=== PATIENT | male | born 1965 | race Hispanic/Latino ===

== ENCOUNTER 2018-02-27 17:34 | Emergency (ER) | payer MEDICARE, MEDICAID ==
[2018-02-27 17:34] VITALS: BMI 19.6
--- NOTE | 2018-02-27 18:56 | C.PDOC ---
History Of Present Illness 52 year old male presents to the ED for evaluation of alcohol intoxication. Patient presented himself to the police department claiming that he has been experiencing anxiety about various issues. Patient has an extensive history of anxiety and depression. Patient admits to drinking two fifth of alcohol, which is usual for his baseline. Patient denies suicidal/homicidal ideation. Time Seen by Provider: 02/27/18 18:00 Chief Complaint (Nursing): Substance Abuse History Per: Patient History/Exam Limitations: intoxication Onset/Duration Of Symptoms: Hrs Current Symptoms Are (Timing): Still Present Suicide/Self Injury Attempted (Context): None Modifying Factor(s): Alcohol Associated Symptoms: denies: Suicidal Thoughts, Suicidal Plan Involuntary Hold By: None Recent travel outside of the [place]: No Additional History Per: Patient Past Medical History Reviewed: Historical Data, Nursing Documentation, Vital Signs Vital Signs: Last Vital Signs Temp 97.9 F 02/27/18 17:43 Pulse 79 02/27/18 17:43 Resp 17 02/27/18 17:43 BP 114/77 02/27/18 17:43 Pulse Ox 96 02/27/18 17:43 - Medical History PMH: Anxiety (HX PANIC ATTACKS), Asthma, COPD, Depression, Fractures (LEXI LEGS ORIF 2004), Peripheral Edema Surgical History: [facility] - [facility] CORONAR ARTERIOGR-2 CATH (07/26/13) LEFT HEART CARDIAC CATH (07/26/13) LT HEART ANGIOCARDIOGRAM (07/26/13) Family History: States: Unknown Family Hx - Social History Hx Tobacco Use: Yes Hx Alcohol Use: Yes Hx Substance Use: No - Immunization History Hx Tetanus Toxoid Vaccination: No Hx Influenza Vaccination: No Hx Pneumococcal Vaccination: No Review Of Systems Psych: Positive for: Other (EtOH intoxication ). Negative for: Suicidal ideation Physical Exam - Physical Exam Appears: Non-toxic, No Acute Distress, Other (stuperous, argumentative, visibly intoxicated ) Skin: Normal Color, Warm, Dry, No Other (obvious injuries ) Head: Atraumatic, Normacephalic Eye(s): bilateral: Normal Inspection Oral Mucosa: Moist, Other (alcohol on breath ) Neck: Supple Chest: Symmetrical, No Deformity Respiratory: No Accessory Muscle Use Extremity: Normal ROM Neurological/Psych: Other (ataxia ) ED Course And Treatment O2 Sat by Pulse Oximetry: 96 (on RA) Pulse Ox Interpretation: Normal Reevaluation Time: 21:55 (psychiatrically and emotionally stable, stable gait) Medical Decision Making Medical Decision Making: persistent alcohol abuse Disposition Doctor Will See Patient In The: Office Counseled Patient/Family Regarding: Studies Performed, Diagnosis - Disposition Disposition: HOME/ ROUTINE Disposition Time: 21:56 Condition: GOOD Forms: [facility] (Macedonian) - Clinical Impression Clinical Impression: Alcohol intoxication - Scribe Statement The provider has reviewed the documentation as recorded by the Scribe (Sandra Noble) Provider Attestation: All medical record entries made by the Scribe were at my direction and personally dictated by me. I have reviewed the chart and agree that the record accurately reflects my personal performance of the history, physical exam, medical decision making, and the department course for this patient. I have also personally directed, reviewed, and agree with the discharge instructions and disposition.
[2018-02-27 21:56] VITALS: O2SAT 96
[2018-02-27 22:04] VITALS: BP 103/69; PULSE 73; RESP 20; TEMP 97.8
== END 2018-02-27 22:15 | disposition home or self-care (01) ==
LOC: C.ER 17:34
DX: F10.129 Alcohol abuse with intoxication, unspecified (principal); Z72.0 Tobacco use

== ENCOUNTER 2018-06-18 09:03 | Emergency (ER) | payer MEDICARE, MEDICAID ==
[2018-06-18 09:10] VITALS: BMI 23.7
[2018-06-18 09:14] VITALS: TEMP 98.2; O2SAT 96
[2018-06-18] MEDS ORDERED: Iodixanol 320 MG/ML 100 ML BOTTLE IV ONE (09:43)
[2018-06-18 10:10] LABS: ALB/GLOB RATIO 1.6 (1.0-2.1); ALBUMIN 4.7 g/dL (3.5-5.0); ALT/SGPT 58 U/L (21-72); AST/SGOT 57 U/L (17-59); BLOOD UREA NITROGEN 11 mg/dL (9-20); CALCIUM 9.7 mg/dl (8.6-10.4); GFR NON-AFRICAN AMERICAN > 60; LIPASE 110 U/L (23-300)
[2018-06-18 10:31] LABS: BASO # 0.1 K/uL (0.0-0.2); BASO % 1.2 % (0.0-2.0); EOS # 0.6 K/uL (0.0-0.7); EOS % 5.3 % (0.0-4.0); HEMOGLOBIN 16.7 g/dL (12.0-18.0); LYMPH # 2.5 K/uL (1.0-4.3); LYMPH % 23.2 % (20.0-40.0); MEAN CELL VOLUME 95.5 fL (80.0-94.0); MEAN CORPUSCULAR HEMOGLOBIN 33.3 pg (27.0-31.0); MEAN CORPUSCULAR HGB CONC 34.8 g/dL (33.0-37.0); MEAN PLATELET VOLUME 9.5 fL (7.2-11.7); MONO # 1.1 K/uL (0.0-0.8); MONO % 10.1 % (0.0-10.0); NEUT # 6.4 K/uL (1.8-7.0); NEUT % 60.2 % (50.0-75.0); NRBC % 0.1 % (0.0-2.0); RBC 5.04 Mil/uL (4.40-5.90); RED CELL DISTRIBUTION WIDTH 13.9 % (11.5-14.5); WHITE BLOOD COUNT 10.7 K/uL (4.8-10.8)
--- NOTE | 2018-06-18 12:40 | CT ---
Date of service: 06/18/2018 CT abdomen and pelvis with IV contrast Indication: abd pain - ? hernia r/o bowel obstruction Technique: Contiguous axial images of the abdomen and pelvis. Coronal and Sagittal reformats generated and reviewed. Contrast: 100 mL Visipaque [address] exam was performed using 1 or more of the following dose reduction techniques: Automated exposure control, adjustment of the MAA and/or kV according to patient size, and/or use of iterative reconstruction technique. Radiation dose: Total exam DLP = 1008.38 MGy-cm. Comparison: Abdominal ultrasound performed 11/29/16 Findings: No visible consolidation, pleural effusion, or pneumothorax. Coronary artery calcifications. Small hiatal hernia. Hypoattenuation of the liver compatible with hepatic steatosis. 1.4 cm pancreatic hypodensity with peripheral calcification. Pancreatic duct does not appear dilated. Remainder of the pancreas appears unremarkable. The kidneys, adrenal glands, and gallbladder appear unremarkable. Gastric wall thickening likely exaggerated by wall thickening; correlate clinically including endoscopy if indicated. Tiny fat containing umbilical hernia. Mucosal wall thickening of the right colon; correlate for history of colitis. The bowel loops appear within normal limits of caliber without evidence of intestinal obstruction. The appendix is not identified. No secondary signs of acute appendicitis. There is no definite free air. Thick-walled urinary bladder. L2 through L4 posterior lumbar fusion hardware. Resultant streak artifact. Degenerative changes. Mild loss of T12 vertebral body height, presumably compression fracture age indeterminate. Impression: 1.4 cm pancreatic hypodensity with peripheral calcification; indeterminate. Recommend follow-up pancreatic protocol CT or MRI for further characterization. Malignant neoplasm cannot be excluded. The spleen is absent; by history the patient has had a splenectomy. Hypoattenuation of the liver compatible with hepatic steatosis. Gastric wall thickening presumably exaggerated by under distension; follow-up with endoscopy may be considered. Mucosal wall thickening of the right colon; correlate for history of colitis. Thick-walled urinary bladder; recommend correlation with urinalysis. L2 through L4 posterior lumbar fusion hardware. Resultant streak artifact. Degenerative changes. Mild loss of T12 vertebral body height, presumably compression fracture age indeterminate. Case discussed with Dr. Gray on 06/18/18 at 12:33 p.m.
[2018-06-18 14:17] VITALS: BP 138/86; PULSE 82; RESP 19
--- NOTE | 2018-06-18 14:45 | C.PDOC ---
History Of Present Illness 52 y/o male presents to the ER complaining of intermittent abdominal pain which has been present for the past 2-3 weeks. Patient states that he has normal diet and he has no changes in appetite. Patient reports that he has to strain sometimes to have a bowel movement. He notes that he was referred to the ER by [facility] to rule out bowel obstruction.Denies having fever,chills,nausea, vomiting, diarrhea, constipation, and urinary symptoms. Time Seen by Provider: 06/18/18 09:18 Chief Complaint (Nursing): Abdominal Pain History Per: Patient History/Exam Limitations: no limitations Onset/Duration Of Symptoms: Days Current Symptoms Are (Timing): Still Present Severity: Moderate Past Medical History Reviewed: Historical Data, Nursing Documentation, Vital Signs Vital Signs: Last Vital Signs Temp 98.2 F 06/18/18 09:10 Pulse 82 06/18/18 14:16 Resp 19 06/18/18 14:16 BP 138/86 06/18/18 14:16 Pulse Ox 96 06/18/18 14:16 - Medical History PMH: Anxiety (HX PANIC ATTACKS), Asthma, COPD, Depression, Fractures (LEXI LEGS ORIF 2004), Peripheral Edema Surgical History: Endoscopy - [facility] Procedures CORONAR ARTERIOGR-2 CATH (07/26/13) LEFT HEART CARDIAC CATH (07/26/13) LT HEART ANGIOCARDIOGRAM (07/26/13) Family History: States: No Known Family Hx - Social History Hx Tobacco Use: Yes Hx Alcohol Use: Yes Hx Substance Use: No - Immunization History Hx Tetanus Toxoid Vaccination: No Hx Influenza Vaccination: No Hx Pneumococcal Vaccination: No Review Of Systems Except As Marked, All Systems Reviewed And Found Negative. Constitutional: Negative for: Fever, Chills Gastrointestinal: Positive for: Abdominal Pain. Negative for: Nausea, Vomiting, Diarrhea Genitourinary: Negative for: Dysuria, Frequency, Incontinence, Hematuria Physical Exam - Physical Exam Appears: Non-toxic, No Acute Distress Skin: Normal Color, Warm, Dry Head: Atraumatic, Normacephalic Eye(s): bilateral: Normal Inspection Nose: Normal Oral Mucosa: Moist Neck: Supple Chest: Symmetrical Cardiovascular: Rhythm Regular Respiratory: Normal Breath Sounds, No Rales, No Rhonchi, No Wheezing Gastrointestinal/Abdominal: Bowel Sounds (normal bowel sounds), Soft, No Tenderness, Other (well-healed midline surgical scar, midline abdominal hernia) Neurological/Psych: Oriented x3, Normal Speech ED Course And Treatment - Laboratory Results Result Diagrams: 06/18/18 09:39 06/18/18 09:39 Lab Results: Total Bilirubin 0.8 mg/dL (0.2-1.3) 06/18/18 09:39 AST 57 U/L (17-59) 06/18/18 09:39 ALT 58 U/L (21-72) 06/18/18 09:39 Alkaline Phosphatase 99 U/L (38-126) 06/18/18 09:39 Total Protein 7.6 g/dL (6.3-8.3) 06/18/18 09:39 Albumin 4.7 g/dL (3.5-5.0) 06/18/18 09:39 Globulin 3.0 gm/dL (2.2-3.9) 06/18/18 09:39 Albumin/Globulin Ratio 1.6 (1.0-2.1) 06/18/18 09:39 Lipase 110 U/L (23-300) 06/18/18 09:39 O2 Sat by Pulse Oximetry: 96 (RA) Pulse Ox Interpretation: Normal - CT Scan/US CT-Abd & Pelv. Other Rad Studies (CT/US): Read By Radiologist, Radiology Report Reviewed CT/US Interpretation: Date of service: 06/18/2018. CT abdomen and pelvis with IV contrast. Indication: abd pain - ? hernia r/o bowel obstruction. Technique: Contiguous axial images of the abdomen and pelvis. Coronal and Sagittal re formats generated and reviewed. Contrast: 100 mL Visipaque [address] exam was performed using 1 or more of the following dose reduction techniques: Automated exposure control, adjustment of the MAA and/or kV according to patient size, and/or use of iterative reconstruction technique. Radiation dose: Total exam DLP = 1008.38 MGy-cm. Comparison: Abdominal ultrasound performed 11/29/16. Findings: No visible consolidation, pleural effusion, or pneumothorax. Coronary artery calcifications. Small hiatal hernia. Hypoattenuation of the liver compatible with hepatic steatosis. 1.4 cm pancreatic hypodensity with peripheral calcification. Pancreatic duct does not appear dilated. Remainder of the pancreas appears unremarkable. The kidneys, adrenal glands, and gallbladder appear unremarkable. Gastric wall thickening likely exaggerated by wall thickening; correlate clinically including endoscopy if indicated. Tiny fat containing umbilical hernia. Mucosal wall thickening of the right colon; correlate for history of colitis. The bowel loops appear within normal limits of caliber without evidence of intestinal obstruction. The appendix is not identified. No secondary signs of acute appendicitis. There is no definite free air. Thick-walled urinary bladder. L2 through L4 posterior lumbar fusion hardware. Resultant streak artifact. Degenerative changes. Mild loss of T12 vertebral body height, presumably compression fracture age indeterminate. Impression: 1.4 cm pancreatic hypodensity with peripheral calcification; indeterminate. Recommend follow-up pancreatic protocol CT or MRI for further characterization. Malignant neoplasm cannot be excluded. The spleen is absent; by history the patient has had a splenectomy. Hypoattenuation of the liver compatible with hepatic steatosis. Gastric wall thickening presumably exaggerated by under distension; follow-up with endoscopy may be considered. Mucosal wall thickening of the right colon; correlate for history of colitis. Thick-walled urinary bladder; recommend correlation with urinalysis. L2 through L4 posterior lumbar fusion hardware. Resultant streak artifact. Degenerative changes. Mild loss of T12 vertebral body height, presumably compression fracture age indeterminate. Case discussed with Dr. Gray on 06/18/18 at 12:33 p.m. Medical Decision Making Medical Decision Making: Plan: --Labs --CT- Abd & Pelv. Disposition - Disposition Referrals: Logan Newman [Staff Provider] - Disposition: HOME/ ROUTINE Disposition Time: 12:40 Condition: GOOD Additional Instructions: SHANTA MENDOZA JR, thank you for letting us take care of you today. The emergency medical care you received today was directed at your acute symptoms. If you were prescribed any medication, please fill it and take as directed. It may take several days for your symptoms to resolve. Return to the Emergency Department if your symptoms worsen, do not improve, or if you have any other problems. Please contact your doctor or call one of the physicians/clinics you have been referred to that are listed on the Patient Visit Information form that is included in your discharge packet. Bring any paperwork you were given at dis charge with you along with any medications you are taking to your follow up visit. Our treatment cannot replace ongoing medical care by a primary care provider outside of the emergency department. Thank you for allowing the [facility] [employer] team to be part of your care today. Follow up with your GI doctor this week for re-evaluation and further management. Instructions: Acute Abdomen (Belly Pain), Adult (DC) Forms: [facility] (Tristanian) - Clinical Impression Clinical Impression: Abdominal hernia - Scribe Statement The provider has reviewed the documentation as recorded by the Estuardoibe Kim Snow Provider Attestation: All medical record entries made by the Estuardoibe were at my direction and personally dictated by me. I have reviewed the chart and agree that the record accurately reflects my personal performance of the history, physical exam, medical decision making, and the department course for this patient. I have also personally directed, reviewed, and agree with the discharge instructions and disposition.
== END 2018-06-18 14:17 | disposition home or self-care (01) ==
LOC: C.ER 09:03
DX: K46.9 Unspecified abdominal hernia without obstruction or gangrene (principal)
CPT/HCPCS: 74177; 80053; 83690; 85025; 99283; Q9967